=== PATIENT | female | born 2000 | race Caucasian/White ===

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

== ENCOUNTER 2018-06-19 14:21 | Inpatient (IN) | payer BC, OTHER ==
[~2018-06-19] VITALS: Ht 165.1 cm; Wt 89.2 kg
[~2018-06-19 14:21] MED LIST: BIRTH CONTROL; PROZ10CA7 PO; TRINTAB PO; VIST25CA PO; ZYPR5TAB2 PO
[2018-06-19] MEDS ORDERED: LATU20TA PO (14:30)
[2018-06-19 15:54] LABS: HEMATOCRIT 46.4 % (36.0-47.0); HEMOGLOBIN 15.7 g/dl (12.0-15.5); MEAN CORPUSCULAR HEMOGLOBIN 29.7 pg (27.0-33.0); MEAN CORPUSCULAR HGB CONC 33.8 g/dl (32.0-36.5); MEAN CORPUSCULAR VOLUME 87.9 fl (80.0-96.0); PLATELET COUNT, AUTOMATED 369 10^3/uL (150-450); RED BLOOD COUNT 5.28 10^6/uL (4.00-5.40); WHITE BLOOD COUNT 9.1 10^3/uL (4.0-10.0)
[2018-06-19 16:04] LABS: HCG, SERUM QUALITATIVE NEGATIVE (NEGATIVE)
[2018-06-19 16:16] LABS: ACETAMINOPHEN LEVEL < 2.0 UG/ML (10.0-30.0); ALBUMIN 4.2 GM/DL (3.2-5.2); ALT/SGPT 28 U/L (12-78); BILIRUBIN,DIRECT 0.2 MG/DL (0.0-0.2); BILIRUBIN,TOTAL 0.6 MG/DL (0.2-1.0); BLOOD UREA NITROGEN 11 MG/DL (7-18); CARBON DIOXIDE LEVEL 26 MEQ/L (21-32); CHLORIDE LEVEL 105 MEQ/L (98-107); CREATININE FOR GFR 0.96 MG/DL (0.55-1.30); ETHYL ALCOHOL (ETHANOL) < 0.003 % (0.000-0.010); GLUCOSE, FASTING 101 MG/DL (70-100); POTASSIUM SERUM 3.8 MEQ/L (3.5-5.1); SALICYLATE LEVEL 2.9 MG/DL (5.0-30.0); SODIUM LEVEL 140 MEQ/L (136-145); TOTAL PROTEIN 8.3 GM/DL (6.4-8.2)
[2018-06-19 16:31] LABS: AMPHETAMINES LEVEL URINE NEGATIVE (NEGATIVE); BARBITURATES URINE NEGATIVE (NEGATIVE); BENZODIAZEPINES URINE NEGATIVE (NEGATIVE); CANNABINOIDS URINE NEGATIVE (NEGATIVE); COCAINE METABOLITE URINE NEGATIVE (NEGATIVE); METHADONE URINE NEGATIVE (NEGATIVE); OPIATES URINE NEGATIVE (NEGATIVE); PHENCYCLIDINE URINE NEGATIVE (NEGATIVE)
[2018-06-19] MEDS ORDERED: MAALOX 30 ML SUSP *UDC PO PRN (17:45)
[2018-06-19] MEDS ORDERED: MOM 30ML SUSPENSION UDC PO PRN (17:45)
[2018-06-19] MEDS ORDERED: ACETAMINOPHEN TAB 650MG DOSE (2X325MG) PO PRN (17:45)
[2018-06-19] MEDS ORDERED: OLANZapine 5 MG TAB PO PRN (17:45)
[2018-06-19 18:30] VITALS: BP 182/111
[2018-06-19] MEDS ORDERED: LURASIDONE 20 MG TAB (LATUDA) PO SCH (21:00)
[2018-06-20] MEDS: MIRTAZAPINE 15 MG TAB PO PRN ×2 (03:35→23:42)
[2018-06-20 06:13] VITALS: BP 132/84
[2018-06-20] MEDS: INFLUENZA QUADRIVALENT PF VACCINE 0.5ML SYRINGE (90686) IM ONE ×2 (08:55→10:15)
[2018-06-20] MEDS: NICOTINE 21MG/24HR 1 EA TRANSDERMAL TD SCH (09:00)
--- NOTE | 2018-06-20 11:07 | HPEPDOC ---
[facility] Medical History & Physical Date of Admission Jun 19, 2018 History and Physical PCP: Dr Sargent ATTENDING: Dr. Irene Walton HPI: 17yoF admitted to [facility] for unspecified psychotic disorder, being medically examined today. No acute medical complaints today. Denies any fevers, chills, weakness, fatigue, SOMERS, CP, SOB, cough, palpitations, abdominal pain, N/V/D or changes in bowel or bladder habits. PMHx: anxiety depression Bipolar disorder PSHX: denies SOCHX: Resides in: [place], lives with Marital Status: single Kids: none Employment: [employer] Tobacco use: 1ppd ETOH: states "when I drink I drink". Illicit Drugs: marijuana 6 mo ago IV Drug Use: Denies Tattoos done unprofessionally: Denies FAMHX: Mother: Alive, seizure, thyroid disorder Father: Alive, bipolar disorder Siblings: Alive, well Children: none Unexpected deaths due to medical reasons: None. ROS: As noted in HPI, otherwise 11pt ROS of systems reviewed and remarkable only for LMP 06/14/18 PE: GEN: 17yoF appears stated age. Well-nourished, well developed. No acute distress. Alert and oriented x 3. Teary throughout exam, avoids eye contact. HEENT: Normocephalic, atraumatic. Pupils are equal, round, and reactive to light. Extraocular movements are intact. No nystagmus appreciated. Sclera are nonicteric. Conjunctiva without injection. Nose midline. Nasal turbinates without bogginess. EACs both patent BL. TMs both visualized and bhatia with good cone of light, no bulging or erythema. No facial asymmetry. Moist mucous membranes. Dentition fair. Pharynx pink and moist, no cobblestoning. Neck supple, trachea midline. No lymphadenopathy or thyromegaly appreciated. CHEST: Regular rate and rhythm, +S1, +S2 LUNGS: Clear to auscultation bilaterally. No wheezes, rales, or rhonchi. Breathing appears symmetric and easy. Patient is speaking in full sentences. No accessory muscle use. ABD: Round, soft, non-tender, non-distended. +Bowel sounds throughout. No rebound or guarding. No costovertebral angle tenderness. EXT: Pulses 2+ bilaterally dorsalis pedis and radial. No lower extremity edema appreciated. SKIN: [place], dry, warm. Capillary refill <2sec. No rashes. NEURO: Alert and oriented x 3. Cranial nerves III-XII are intact. No focal deficits appreciated. EKG: SINUS RHYTHM NSTTW ABNORMALITY NO PRIOR FOR COMPARISON Electronically Signed On 04-30-2017 19:00:03 EST by Gretchen Demarco A&P: 17yoF admitted to [facility] for unspecified psychotic disorder, 1. Psych. Plan per Psychiatry. EKG on file. 2. Nicotine dependence. Patch available. 3. Obesity. BMI 32.6 Complicates care. TSH WNL. BS 101 on admission. 4. Follow up with PCP on discharge. 5. Staff member Jaquelin RN student present throughout exam. Vital Signs Vital Signs Date Time Temp Pulse Resp B/P (MAP) Pulse Ox O2 Delivery O2 Flow Rate FiO2 06/20/18 06:13 98.3 66 18 132/84 (100) 06/19/18 18:30 95 06/19/18 18:21 Room Air Laboratory Data Labs 24H Laboratory Tests 2 06/19/18 14:58: Nucleated Red Blood Cells % (auto) 0.0, Anion Gap 9, Calcium Level 9.0, Aspartate Amino Transf (AST/SGOT) 18, Alanine Aminotransferase (ALT/SGPT) 28, Alkaline Phosphatase 113, Total Bilirubin 0.6, Direct Bilirubin 0.2, Total Protein 8.3H, Albumin 4.2, Albumin/Globulin Ratio 1.02, Thyroid Stimulating Hormone (TSH) 1.070, Human Chorionic Gonadotropin, Qual NEGATIVE, Salicylates Level 2.9L, Urine Amphetamines Screen NEGATIVE, Urine Benzodiazepines Screen NEGATIVE, Urine Opiates Screen NEGATIVE, Urine Methadone Screen NEGATIVE, Acetaminophen Level < 2.0L, Urine Barbiturates Screen NEGATIVE, Urine Phencyclidine Screen NEGATIVE, Urine Cocaine Metabolite Screen NEGATIVE, Urine Cannabinoids Screen NEGATIVE, Ethyl Alcohol Level < 0.003 CBC/BMP Laboratory Tests 06/19/18 14:58 Red Blood Count 5.28, Mean Corpuscular Volume 87.9, Mean Corpuscular Hemoglobin 29.7, Mean Corpuscular Hemoglobin Concent 33.8, Red Cell Distribution Width 11.8 Home Medications Scheduled Lurasidone Hydrochloride (Latuda) 20 Mg Tab, 20 MG PO QHS Allergies Coded Allergies: No Known Allergies (Unverified , 04/29/17) Louise Braun 6, 2019 11:07
[2018-06-20] MEDS ORDERED: NICOTINE 21MG/24HR 1 EA TRANSDERMAL TD ONE (13:45)
[2018-06-20] MEDS ORDERED: OLANZapine ORAL DISINTEGRATING TAB 5MG PO STA (14:09)
[2018-06-20] MEDS: PALIPERIDONE 3 MG ER TAB (INVEGA) PO SCH (15:19)
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
[2018-06-20 18:28] VITALS: BP 112/66
[2018-06-20] MEDS: LURASIDONE 20 MG TAB (LATUDA) PO SCH (21:33)
[2018-06-21 06:41] VITALS: BP 117/57
[2018-06-21] MEDS: NICOTINE 21MG/24HR 1 EA TRANSDERMAL TD SCH (08:39)
[2018-06-21] MEDS: PALIPERIDONE 3 MG ER TAB (INVEGA) PO SCH (08:39)
[2018-06-21] MEDS ORDERED: PROPRANOLOL 10 MG TAB PO PRN (14:15)
--- NOTE | 2018-06-21 16:57 | MHIPNPDOC ---
[facility] Progress Note Progress Note DATE OF SERVICE: 06/21/18 HISTORY: CHIEF COMPLAINT: Parents report bizarre behavior, patient hallucinating, paranoid, manic, unwilling to take her medications HISTORY OF PRESENT ILLNESS: Patient is a 17-year-old female, who, according to ED report:"pt's mother Barbie, reports past 3 months pt has been decompensating, erratic,sleeping, 3 days good, 3 days no sleep, "manic phase" risky behavior, increased sexual behavior, "paranoid about camera in the car, job, house, " was drug tested at her job, because of her bizarre behaviors, and paranoid thoughts, " pressured speech, disorganized thoughts, poor concentration, hearing distracting noises, seems to have internal stimuli, and has increased eating, admits to +AH, mumbling, seeing things, went drinking on Monday night, got home to grandmother's home, "seeing wings." Pt was put on Latuda 20 mg, 8 days ago, pt reports it is making her feel funny, by her dr. Sargent, Dr. Alcantar was in the office today, pt wanted to change the medication, pt states does not like taking medications, and wanted her brought to ED for an evaluation, not his expertise, per Step carol Shore. Pt presents "holding it together, denies any issues, not sure why she was drug tested, not suicidal, does not wish to kill anyone, wants to go home, "I want to get help, don't want to be here, I will do out patient, and take my medications." Pt reports she can see her therapist kalia mitchell, "any time." Per mother Barbie, "pt has not seen or spoke to Kalia in an year, stopped taking medications 2 months after dc 05/05/17, is having terrible mood swings, t angential mind thoughts, hasn't smiled in months, losing friends because of her paranoid thoughts." Babrie has safety concerns for her daughter's well-being, and risky behaviors, per mother. Pt minimizing and guarded in her presentation, does not know why her parents, Barbie and step dad Silviano, have concerns. Pt has a long history of anxiety, and bizarre behavior, per pt" VITAL SIGNS: See below. NEW TEST RESULTS: See below CURRENT MEDICATIONS: See below. MENTAL STATUS EXAMINATION: General Appearance: well groomed, appears stated age, personal, overweight Build: overweight Demeanor: pleasant, cooperative, talkative Eye Contact: good Activity: calm Behavior: She is much better today, she is cooperative and more flexible at this time, she has agreed to stay longer so that tw can adjust her medications Speech: clear, spontaneous, normal volume, reg/rate,rhythm,volume Mood: a little anxious Mood "I'm anxious because I'm supposed to go to groups but I can't be near a lot of people that I don't know" Affect: full, appropriate, congruent Thought Process: linear, not insightful Thought Content (Delusions): none reported today Thought Content (Other): anxious thoughts about going to groups Thought Content (Aggressive): none reported Perception (Hallucinations): none reported Perception (Other): none reported Cognition (Impairment of): none reported Cognition(Intelligence Est.): average Oriented: Awake, Alert, Oriented times three Insight: poor Judgment: poor Psychosis: Denies Diagnoses Generalized Anxiety Disorder Unspecified psychotic disorder, r/o bipolar disorder versus schizoaffective disorder. ASSESSMENT: Patient's attitude is improving. She is still not insightful but is calmer and is more opened to try new medications and stay longer (at least until tomorrow-we will see if tomorrow she agrees to stay over the weekend). She started taking Invega yesterday afternoon around 3:30 pm and she took it this morning too. She took Latuda last night, 40 mgs. I've started Zoloft today, a very small dose (12.5 mgs) just to help her with her social anxiety disorder. I don't want to give her a higher dose because yesterday she seemed to be manic. TW ordered Inderal 10 mgs PO TID PRN for anxiety/agitation because she describes that before she becomes very angry, her hands become shaky and sweaty. MANAGEMENT PLAN: As above Invega 3 mgs PO BID Latuda 40 mgs PO QHS Zoloft 12.5 mgs PO daily Inderal 10 mgs PO TIDP for anxiety/agitation TIME SPENT: 25 minutes. Vital Signs Vital Signs Date Time Temp Pulse Resp B/P (MAP) Pulse Ox O2 Delivery O2 Flow Rate FiO2 06/21/18 06:41 96.5 75 12 117/57 (77) 06/19/18 18:30 95 06/19/18 18:21 Room Air Current Medications Current Medications Acetaminophen (Tylenol Tab) 650 mg Q6HP PRN PO HEADACHE or DISCOMFORT; Start 06/19/18 at 17:45 Al Hydrox/Mg Hydrox/Simethicone (Mylanta) 30 ml Q4HP PRN PO HEARTBURN/INDIGESTION; Start 06/19/18 at 17:45 Home Med (Med Rec Complete!) ASDIRECTED XX ; Start 06/19/18 at 18:45; Stop 06/19/18 at 18:45; Status DC Lurasidone HCl (Latuda) 20 mg QHS PO Last administered on 06/19/18at 22:11; Start 06/19/18 at 21:00; Stop 06/20/18 at 14:09; Status DC Lurasidone HCl (Latuda) 40 mg QHS PO Last administered on 06/20/18at 21:33; Start 06/20/18 at 21:00 Magnesium Hydroxide (Milk Of Magnesia) 30 ml DAILYPRN PRN PO CONSTIPATION; Start 06/19/18 at 17:45 Mirtazapine (Remeron) 30 mg QHSP PRN PO INSOMNIA Last administered on 06/20/18at 23:42; Start 06/19/18 at 17:45 Nicotine (Nicoderm Cq 21mg) 1 patch DAILY TD Last administered on 06/21/18at 08:39; Start 06/20/18 at 09:00 Olanzapine (ZyPREXA ZYDIS) 10 mg STAT STAT PO ; Start 06/20/18 at 14:09; Stop 06/20/18 at 14:10; Status DC Olanzapine (ZyPREXA) 5 mg Q6HP PRN PO ANXIETY/AGITATION; Start 06/19/18 at 17:45 Paliperidone (Invega) 3 mg QAM PO Last administered on 06/21/18at 08:39; Start 06/20/18 at 09:00 Propranolol HCl (Inderal) 10 mg TID PRN PO ANXIETY/AGITATION; Start 06/21/18 at 14:15 Sertraline HCl (Zoloft) 12.5 mg QAM PO ; Start 06/22/18 at 09:00 Allergies Coded Allergies: No Known Allergies (Unverified , 04/29/17) TONE BRYANT MD Jun 21, 2018 16:44
[2018-06-21 18:00] VITALS: BP 138/75
[2018-06-21] MEDS: LURASIDONE 20 MG TAB (LATUDA) PO SCH (20:13)
[2018-06-22 06:00] VITALS: BP 127/58
[2018-06-22 07:38] LABS: CHOLESTEROL RISK RATIO 5.878 (<5)
[2018-06-22] MEDS: PALIPERIDONE 3 MG ER TAB (INVEGA) PO SCH (08:10)
[2018-06-22] MEDS: SERTRALINE HCL 25 MG TABLET PO SCH (08:10)
[2018-06-22] MEDS: NICOTINE 21MG/24HR 1 EA TRANSDERMAL TD SCH (08:10)
[2018-06-22] MEDS ORDERED: PALIPERIDONE PALMITATE 234 MG/1.5 ML INJ (INVEGA SUSTENNA)(J2426) IM SCH (09:00)
[2018-06-22] MEDS ORDERED: diphenhydrAMINE 25 MG CAP PO PRN (11:45)
[2018-06-22 18:11] VITALS: BP 127/71
[2018-06-22] MEDS: LURASIDONE 20 MG TAB (LATUDA) PO SCH (20:00)
--- NOTE | 2018-06-22 21:59 | MHIPNPDOC ---
[facility] Progress Note Progress Note DATE OF SERVICE: 06/22/18 HISTORY: CHIEF COMPLAINT: Parents report bizarre behavior, patient hallucinating, paranoid, manic, unwilling to take her medications HISTORY OF PRESENT ILLNESS: Patient is a 17-year-old female, who, according to ED report:"pt's mother Barbie, reports past 3 months pt has been decompensating, erratic,sleeping, 3 days good, 3 days no sleep, "manic phase" risky behavior, increased sexual behavior, "paranoid about camera in the car, job, house, " was drug tested at her job, because of her bizarre behaviors, and paranoid thoughts, " pressured speech, disorganized thoughts, poor concentration, hearing distracting noises, seems to have internal stimuli, and has increased eating, admits to +AH, mumbling, seeing things, went drinking on Monday night, got home to grandmother's home, "seeing wings." Pt was put on Latuda 20 mg, 8 days ago, pt reports it is making her feel funny, by her dr. Sargent, Dr. Alcantar was in the office today, pt wanted to change the medication, pt states does not like taking medications, and wanted her brought to ED for an evaluation, not his expertise, per Step carol Shore. Pt presents "holding it together, denies any issues, not sure why she was drug tested, not suicidal, does not wish to kill anyone, wants to go home, "I want to get help, don't want to be here, I will do out patient, and take my medications." Pt reports she can see her therapist kalia mitchell, "any time." Per mother Barbie, "pt has not seen or spoke to Kalia in an year, stopped taking medications 2 months after dc 05/05/17, is having terrible mood swings, t angential mind thoughts, hasn't smiled in months, losing friends because of her paranoid thoughts." Barbie has safety concerns for her daughter's well-being, and risky behaviors, per mother. Pt minimizing and guarded in her presentation, does not know why her parents, Barbie and step dad Silviano, have concerns. Pt has a long history of anxiety, and bizarre behavior, per pt" VITAL SIGNS: See below. NEW TEST RESULTS: See below CURRENT MEDICATIONS: See below. MENTAL STATUS EXAMINATION: General Appearance: well groomed, appears stated age, personal, overweight Build: overweight Demeanor: pleasant, cooperative, talkative Eye Contact: good Activity: anxious Behavior: She is much better today, she is cooperative and more flexible at this time, she has agreed to stay longer so that tw can adjust her medications Speech: clear, spontaneous, normal volume, reg/rate,rhythm,volume Mood: a little anxious Mood "I'm fine, I just want to go home" Affect: full, appropriate, congruent Thought Process: linear, not insightful Thought Content (Delusions): none reported today Thought Content (Other): anxious thoughts about going to groups Thought Content (Aggressive): none reported Perception (Hallucinations): none reported Perception (Other): none reported Cognition (Impairment of): none reported Cognition(Intelligence Est.): average Oriented: Awake, Alert, Oriented times three Insight: poor Judgment: poor Psychosis: Denies Diagnoses Generalized Anxiety Disorder Unspecified psychotic disorder, r/o bipolar disorder versus schizoaffective disorder. ASSESSMENT: Patient agreed to receive G[place] of Invega, Invega 234 mgs IM today and booster next Monday. Patient was calm and cooperative, although she wanted to be discharged, she accepted staying at the hospital and receive her injection. Will discontinue Invega (oral) and will decrease Latuda to 20 mgs PO QHS, will continue with Zoloft 12.5 mgs PO QAM and Inderal 10 mgs PO TIDP for anxiety/agitation. Patient has been feeling calmer since she was started on Invega. She will be taking Benadryl to prevent EPS. MANAGEMENT PLAN: As above Latuda 40 mgs PO QHS Zoloft 12.5 mgs PO daily Inderal 10 mgs PO TIDP for anxiety/agitation TIME SPENT: 25 minutes. Vital Signs Vital Signs Date Time Temp Pulse Resp B/P (MAP) Pulse Ox O2 Delivery O2 Flow Rate FiO2 06/22/18 18:11 98.0 96 18 127/71 (89) 06/19/18 18:30 95 06/19/18 18:21 Room Air Laboratory Data 24H Labs Laboratory Tests 2 06/22/18 06:48: Triglycerides Level 211H, LDL Cholesterol 119H, Total Cholesterol 194, Non-HDL Cholesterol (LDL + VLDL) 161, Total HDL Cholesterol 33L, Cholesterol/HDL Ratio 5.878H Current Medications Current Medications Acetaminophen (Tylenol Tab) 650 mg Q6HP PRN PO HEADACHE or DISCOMFORT; Start 06/19/18 at 17:45 Al Hydrox/Mg Hydrox/Simethicone (Mylanta) 30 ml Q4HP PRN PO HEARTBURN/INDIGESTION; Start 06/19/18 at 17:45 Diphenhydramine HCl (Benadryl) 25 mg Q8HP PRN PO EPS; Start 06/22/18 at 11:45 Home Med (Med Rec Complete!) ASDIRECTED XX ; Start 06/19/18 at 18:45; Stop 06/19/18 at 18:45; Status DC Lurasidone HCl (Latuda) 20 mg QHS PO Last administered on 06/19/18at 22:11; Start 06/19/18 at 21:00; Stop 06/20/18 at 14:09; Status DC Lurasidone HCl (Latuda) 40 mg QHS PO Last administered on 06/22/18at 20:00; Start 06/20/18 at 21:00 Magnesium Hydroxide (Milk Of Magnesia) 30 ml DAILYPRN PRN PO CONSTIPATION; Start 06/19/18 at 17:45 Mirtazapine (Remeron) 30 mg QHSP PRN PO INSOMNIA Last administered on 06/20/18at 23:42; Start 06/19/18 at 17:45 Nicotine (Nicoderm Cq 21mg) 1 patch DAILY TD Last administered on 06/22/18at 08:10; Start 06/20/18 at 09:00 Olanzapine (ZyPREXA ZYDIS) 10 mg STAT STAT PO ; Start 06/20/18 at 14:09; Stop 06/20/18 at 14:10; Status DC Olanzapine (ZyPREXA) 5 mg Q6HP PRN PO ANXIETY/AGITATION; Start 06/19/18 at 17:45 Paliperidone (Invega) 3 mg QAM PO Last administered on 06/22/18at 08:10; Start 06/20/18 at 09:00 Paliperidone Palmitate (Invega Sustenna) 234 mg Q30D IM Last administered on 06/22/18at 12:24; Start 06/22/18 at 09:00 Propranolol HCl (Inderal) 10 mg TID PRN PO ANXIETY/AGITATION; Start 06/21/18 at 14:15 Sertraline HCl (Zoloft) 12.5 mg QAM PO Last administered on 06/22/18at 08:10; Start 06/22/18 at 09:00 Allergies Coded Allergies: No Known Allergies (Unverified , 04/29/17) TONE BRYANT MD Jun 22, 2018 21:59
[2018-06-23 06:15] VITALS: BP 134/81
[2018-06-23] MEDS: NICOTINE 21MG/24HR 1 EA TRANSDERMAL TD SCH (08:36)
[2018-06-23] MEDS: SERTRALINE HCL 25 MG TABLET PO SCH (08:36)
[2018-06-23 18:42] VITALS: BP 108/75
[2018-06-23] MEDS: LURASIDONE 20 MG TAB (LATUDA) PO SCH (20:15)
[2018-06-24 06:10] VITALS: BP 129/70
[2018-06-24] MEDS: SERTRALINE HCL 25 MG TABLET PO SCH (08:39)
[2018-06-24] MEDS: NICOTINE 21MG/24HR 1 EA TRANSDERMAL TD SCH (08:40)
[2018-06-24 18:00] VITALS: BP 122/80
[2018-06-24] MEDS: LURASIDONE 20 MG TAB (LATUDA) PO SCH (20:51)
[2018-06-25 06:21] VITALS: BP 131/67
[2018-06-25] MEDS: NICOTINE 21MG/24HR 1 EA TRANSDERMAL TD SCH (09:00)
[2018-06-25] MEDS: SERTRALINE HCL 25 MG TABLET PO SCH (09:25)
[2018-06-25] MEDS ORDERED: DIPH25CA PO (11:51)
[2018-06-25] MEDS ORDERED: LATU20TA PO (11:51)
[2018-06-25] MEDS ORDERED: PROP10TAB PO (11:51)
[2018-06-25] MEDS ORDERED: NICO21PAT TD (11:51)
[2018-06-25] MEDS ORDERED: MIRT15TA3 PO (11:51)
[2018-06-25] MEDS ORDERED: INVE234I IM (11:51)
[2018-06-25] MEDS ORDERED: SERT25TA PO (11:51)
[2018-06-25] MEDS ORDERED: PALIPERIDONE PALMITATE 156 MG/1ML INJ(INVEGA SUSTENNA)(J2426) IM ONE (12:00)
--- NOTE | 2018-06-25 15:39 | MHIPN ---
DATE: 06/23/2018 The patient today states that she is doing "a lot better." She really feels her current medications are helping her. She has no complaints. MENTAL STATUS EXAMINATION: She is alert and oriented times three. Eye contact is fair. Psychomotor activity is normal. She is verbally spontaneous. There is no formal thought disorder noted. Mood is "better." Affect is full range and appropriate. She is not psychotic, suicidal or homicidal. Concentration is fair. Memory intact. Insight and judgment fair. DIAGNOSES: 1. Generalized anxiety disorder. 2. Unspecified psychotic disorder. TREATMENT PLAN: We will continue to monitor the patient for continued elevation and stabilization of her mood and for continued resolution of any suicidal ideations. We will plan on monitoring and titrating her medications as indicated.
--- NOTE | 2018-07-01 16:29 | MHDSPDOC ---
[facility] Discharge Summary Discharge Summary DATE OF ADMISSION: Jun 19, 2018 at 17:33 DATE OF DISCHARGE: Jun 25, 2018 at 13:50 DISCHARGE DIAGNOSES: 1. Schizoaffective disorder, bipolar 2. SOPHIA 3. Panic disorder REASON FOR ADMISSION: CHIEF COMPLAINT: Parents report bizarre behavior, patient hallucinating, paranoid, manic, unwilling to take her medications HISTORY OF PRESENT ILLNESS: Patient is a 17-year-old female, who, according to ED report:"pt's mother Barbie, reports past 3 months pt has been decompensating, erratic,sleeping, 3 days good, 3 days no sleep, "manic phase" risky behavior, increased sexual behavior, "paranoid about camera in the car, job, house, " was drug tested at her job, because of her bizarre behaviors, and paranoid thoughts," pressured speech, disorganized thoughts, poor concentration, hearing distracting noises, seems to have internal stimuli, and has increased eating, admits to +, mumbling, seeing things, went drinking on Monday night, got home to grandmother's home, "seeing wings." Pt was put on Latuda 20 mg, 8 days ago, pt reports it is making her feel funny, by her dr. Simmons, Dr. Alcantar was in the office today, pt wanted to change the medication, pt states does not like taking medications, and wanted her brought to ED for an evaluation, not his expertise, per Step carol Shore. Pt presents "holding it together, denies any issues, not sure why she was drug tested, not suicidal, does not wish to kill anyone, wants to go home, "I want to get help, don't want to be here, I will do out patient, and take my medications." Pt reports she can see her therapist kalia mitchell, "any time." Per mother Barbie, "pt has not seen or spoke to Kalia in an year, stopped taking medications 2 months after dc 05/05/17, is having terrible mood swings, tangential mind thoughts, hasn't smiled in months, losing friends because of her paranoid thoughts." Barbie has safety concerns for her daughter's well-being, and risky behaviors, per mother. Pt minimizing and guarded in her presentation, does not know why her parents, Barbie and step dad Silviano, have concerns. Pt has a long history of anxiety, and bizarre behavior, per pt" CONSULTANTS INVOLVED: None TREATMENT AND PROGRESS ON THE UNIT : Patient was admitted after parents reported bizarre/manic/paranoid behavior for several days. She had experienced visual hallucinations and she said it had been the only time, when she had seen "wings". she was dnying all the symptoms her parents had descirbed when she came into our Unit and she refused to take any medications but lateron, she accepted to take Invega 3 mgs. During the next 24 hours the patient was more cooperative and although she didn't want to stay at the hospital, she accepted staying when I told her it was with the purpose of adjusting her medications. she had been taking Latuda, prescribed by her outpatient provider, but apparently and according to what her parents said, she was not very compliant. Next day she insisted on being discharged but I explained that we needed to observe her response to medications and offered her the possibility of starting her on Invega sustenna 234 mgs IM and she accepted. TW ecplained that she would need to stay until Monday because she would need her 2nd loading dose of 156 mgs and she accepted too, although she said that it was Monday and she wanted to be at her GM's home. During her stay she didn't exhibit any angry outbursts, she was cooperative but she refused to go to most groups because she said she had Social Anxiety and it made her nervous to be in a room with other people, especially when it came to sharing personal issues. She had a good response to medications, she didn't report medication side effects, she said she would comply with medications and therapy. She was discharged with instructions to receive her outpatient monthly [place] for Invega Sustenna, continue taking Latuda at a low dose (20 mgs,. more for mood stabilization), Sertraline 25 mgs Po daily for depression, Propranolol 10 mgs PO TID PRN for severe anxiety/panic attacks, Mirtazapine 30 mgs PO QHS PRN for insomnia, Benadryl 15 mgs PO Q8P for EPS HOSPITAL COURSE: As above DISCHARGE ASSESSMENT: Patient was not homicidal, not suicidal, not psychotic, she was goal orientated, wanted to go to College, wanted to go back to work MENTAL STATUS EXAMINATION ON DISCHARGE: General Appearance: well groomed, appears stated age, personal clothes, overweight Build: overweight Demeanor: pleasant, cooperative, talkative Eye Contact: good Activity: calm Behavior: pleasant, cooperative, calm, relaxed Speech: clear, spontaneous, normal volume, reg/rate,rhythm,volume Mood: happy Mood "I'm happy to go home" Affect: full, appropriate, congruent Thought Process: linear, more insightful Thought Content (Delusions): none reported today Thought Content (Other): none reported Thought Content (Aggressive): none reported Perception (Hallucinations): none reported Perception (Other): none reported Cognition (Impairment of): none reported Cognition(Intelligence Est.): average Oriented: Awake, Alert, Oriented times three Insight: improved Judgment: improved Psychosis: Denies MEDICATIONS ON DISCHARGE: Scheduled Lurasidone Hydrochloride (Latuda) 20 Mg Tab, 20 MG PO QHS for MOOD, #7 Nicotine (Nicotine Transdermal Syst) 21 Mg/24 Hr Dis, 1 PATCH TD DAILY for NICOTINE WITHDRAWALS, #7 Paliperidone Palmitate (Invega Sustenna) 234 Mg/1.5 Ml Inj, 234 MG IM Q30D for PSYCHOSIS, #1 Sertraline Hcl (Sertraline HCl) 25 Mg Tab, 12.5 MG PO QAM for ANXIETY, #7 Scheduled PRN Diphenhydramine HCl (Diphenhydramine HCl) 25 Mg Cap, 25 MG PO Q8HP PRN for EPS, #21 Mirtazapine (Mirtazapine) 15 Mg Tab, 30 MG PO QHSP PRN for INSOMNIA, #7 Propranolol HCl (Propranolol HCl) 10 Mg Tab, 10 MG PO TID PRN for ANXIETY/AGITATION, #21 PLAN/FOLLOWUP ARRANGEMENTS: Follow Up Care Education Label * Mental Health Appt 1 * Mental Health [facility] * Established With This Provider Yes * Therapist DANI * Date Jun 26, 2018 * Time 10:45 * Address of Clinic or Practice [address] [place] [address] * Follow Up Care Education Label * Medical * Medical Follow Up [facility] * Established With This Provider Yes * Therapist DR. SIMMONS * Date Jul 10, 2018 * Time 14:20 * Address of Clinic or Practice [address] [facility] [address], [place] [address] * Follow Up Care Education Label * Smoking Cessation * Mental Health [facility] * Smoking Cessation [facility] Smoking Cessation * Additional information see attached form The amount of time spent in the coordination of care for this patient was approximately 30 minutes. Vital Signs/I&Os Vital Signs Date Time Temp Pulse Resp B/P (MAP) Pulse Ox O2 Delivery O2 Flow Rate FiO2 06/25/18 06:21 98.3 80 18 131/67 (88) Medications Scheduled Lurasidone Hydrochloride (Latuda) 20 Mg Tab, 20 MG PO QHS for MOOD, #7 Nicotine (Nicotine Transdermal Syst) 21 Mg/24 Hr Dis, 1 PATCH TD DAILY for NICOTINE WITHDRAWALS, #7 Paliperidone Palmitate (Invega Sustenna) 234 Mg/1.5 Ml Inj, 234 MG IM Q30D for PSYCHOSIS, #1 Sertraline Hcl (Sertraline HCl) 25 Mg Tab, 12.5 MG PO QAM for ANXIETY, #7 Scheduled PRN Diphenhydramine HCl (Diphenhydramine HCl) 25 Mg Cap, 25 MG PO Q8HP PRN for EPS, #21 Mirtazapine (Mirtazapine) 15 Mg Tab, 30 MG PO QHSP PRN for INSOMNIA, #7 Propranolol HCl (Propranolol HCl) 10 Mg Tab, 10 MG PO TID PRN for ANXIETY/AGITATION, #21 Allergies Coded Allergies: No Known Allergies (Unverified , 04/29/17) TONE BRYANT MD Jul 01, 2018 16:26
== END 2018-06-25 13:50 | disposition home or self-care (01) | DRG 885 ==
LOC: M ED 14:21 → M ED INP 17:33 → M PSY 18:29
PROVIDERS: ADMIT Psychiatry & Neurology Psychiatry; ATTEND Psychiatry & Neurology Psychiatry
DX: F25.0 Schizoaffective disorder, bipolar type (principal); F41.0 Panic disorder [episodic paroxysmal anxiety]; Z79.899 Other long term (current) drug therapy; F17.200 Nicotine dependence, unspecified, uncomplicated; E66.9 Obesity, unspecified; Z68.32 Body mass index [BMI] 32.0-32.9, adult

== ENCOUNTER 2018-10-21 20:07 | Inpatient (IN) | payer OTHER ==
[~2018-10-21] VITALS: Ht 165.1 cm; Wt 88.9 kg
[~2018-10-21 20:07] MED LIST changes: +DIPH25CA PO; +INVE234I IM; +LATU20TA PO; +MIRT15TA3 PO; +NICO21PAT TD; +PROP10TA55 PO; +SERT25TA85 PO
[2018-10-21] MEDS ORDERED: ARIP1TAB6 PO (20:23)
[2018-10-21 21:07] LABS: HEMATOCRIT 40.1 % (36.0-47.0); HEMOGLOBIN 13.5 g/dl (12.0-15.5); MEAN CORPUSCULAR HEMOGLOBIN 30.4 pg (27.0-33.0); MEAN CORPUSCULAR HGB CONC 33.7 g/dl (32.0-36.5); MEAN CORPUSCULAR VOLUME 90.3 fl (80.0-96.0); PLATELET COUNT, AUTOMATED 275 10^3/uL (150-450); RED BLOOD COUNT 4.44 10^6/uL (4.00-5.40); WHITE BLOOD COUNT 10.8 10^3/uL (4.0-10.0)
[2018-10-21 21:36] LABS: AMPHETAMINES LEVEL URINE NEGATIVE (NEGATIVE); BARBITURATES URINE NEGATIVE (NEGATIVE); BENZODIAZEPINES URINE NEGATIVE (NEGATIVE); CANNABINOIDS URINE NEGATIVE (NEGATIVE); COCAINE METABOLITE URINE NEGATIVE (NEGATIVE); METHADONE URINE NEGATIVE (NEGATIVE); OPIATES URINE NEGATIVE (NEGATIVE); PHENCYCLIDINE URINE NEGATIVE (NEGATIVE)
[2018-10-21 21:45] LABS: ACETAMINOPHEN LEVEL < 2.0 UG/ML (10.0-30.0); ALBUMIN 3.7 GM/DL (3.2-5.2); ALT/SGPT 18 U/L (12-78); BILIRUBIN,DIRECT 0.1 MG/DL (0.0-0.2); BILIRUBIN,TOTAL 0.5 MG/DL (0.2-1.0); BLOOD UREA NITROGEN 11 MG/DL (7-18); CALCIUM LEVEL 9.1 MG/DL (8.5-10.1); CARBON DIOXIDE LEVEL 29 MEQ/L (21-32); CHLORIDE LEVEL 105 MEQ/L (98-107); CREATININE FOR GFR 0.92 MG/DL (0.55-1.30); ETHYL ALCOHOL (ETHANOL) < 0.003 % (0.000-0.010); GLUCOSE, FASTING 93 MG/DL (70-100); POTASSIUM SERUM 3.8 MEQ/L (3.5-5.1); SALICYLATE LEVEL < 1.7 MG/DL (5.0-30.0); SODIUM LEVEL 141 MEQ/L (136-145); TOTAL PROTEIN 7.1 GM/DL (6.4-8.2)
[2018-10-21 21:51] LABS: HCG, SERUM QUALITATIVE NEGATIVE (NEGATIVE)
[2018-10-21] MEDS ORDERED: LURASIDONE 20 MG TAB (LATUDA) PO ONE (22:45)
[2018-10-22] MEDS ORDERED: PROP10TA56 PO (09:06)
[2018-10-22] MEDS ORDERED: LATU20TA PO (09:06)
[2018-10-22] MEDS ORDERED: MOM 30ML SUSPENSION UDC PO PRN (13:00)
[2018-10-22] MEDS ORDERED: traZODone 50 MG TAB PO PRN (13:00)
[2018-10-22] MEDS ORDERED: ACETAMINOPHEN TAB 650MG DOSE (2X325MG) PO PRN (13:00)
[2018-10-22] MEDS ORDERED: MAALOX 30 ML SUSP *UDC PO PRN (13:00)
[2018-10-22 13:42] VITALS: BP 113/61
--- NOTE | 2018-10-22 15:32 | HPEPDOC ---
General Date of Admission Oct 22, 2018 at 13:15 Date of Service: Oct 22, 2018 Attending Physician: LANA VASQUEZ MD Chief Complaint The patient is a 18-year-old female admitted with a reason for visit of E. Source: Patient, RN/ History of Present Illness Patient is a 18-year-old, past medical history significant for bipolar disorder, depression, anxiety, presenting to the emergency room on account of suicidal thoughts for 2 weeks. Patient had also had a panic attack and informed her parents that she needed to come to the hospital. On assessment, she denies any physical symptoms of chest pain, shortness of breath, weakness, chills, fever, abdominal pain, nausea, diarrhea or constipation. Home Medications Scheduled Aripiprazole (Aripiprazole) 5 Mg Tablet, 5 MG PO QHS, (Reported) Lurasidone Hydrochloride (Latuda) 20 Mg Tablet, 20 MG PO QHS, (Reported) Scheduled PRN Propranolol HCl (Propranolol HCl) 10 Mg Tablet, 10 MG PO TID PRN for ANXIETY/AGITATION, (Reported) Allergies Coded Allergies: bee venom protein (honey bee) (Verified Allergy, Unknown, 10/21/18) Past Medical History Medical History Bipolar disorder Depression Anxiety Nicotine dependence Surgical History No surgeries Family History Denies family history Social History * Smoker: current smoker, less than 1 pack/day Alcohol: Denies Drugs: denies A-FIB/CHADSVASC A-FIB History Current/History of A-Fib/PAF?: No Current PO Anticoag Therapy: No Review of Systems Other systems A pertinent 10 point review of systems is completed, negative except as stated in the history of presenting illness Physical Examination Other physical findings GENERAL: NAD SKIN : Warm, dry intact HEENT: Atraumatic, normocephalic, PERRL, moist mucous membrane CARDIOVASCULAR: Regular rate and rhythm, S1S2, no JVD, no edema, distal pulses + and palpable RESP: CTAB, no accessory muscle use noted ABDOMEN: BS+ non distended non tender MS: no joint deformities NEURO: Alert and oriented x 3, CN2-12 grossly intact PSYCH: no anxiety or agitation, appropriate mood and affect. Vital Signs Vital Signs Date Time Temp Pulse Resp B/P (MAP) Pulse Ox O2 Delivery O2 Flow Rate FiO2 10/22/18 13:42 98.5 82 16 113/61 (78) 97 10/22/18 06:56 Room Air Laboratory Data Labs 24H Laboratory Tests 2 10/21/18 20:56: Nucleated Red Blood Cells % (auto) 0.0, Anion Gap 7L, Calcium Level 9.1, Aspartate Amino Transf (AST/SGOT) 12, Alanine Aminotransferase (ALT/SGPT) 18, Alkaline Phosphatase 72, Total Bilirubin 0.5, Direct Bilirubin 0.1, Total Protein 7.1, Albumin 3.7, Albumin/Globulin Ratio 1.09, Thyroid Stimulating Hormone (TSH) 1.630, Human Chorionic Gonadotropin, Qual NEGATIVE, Salicylates Level < 1.7L, Urine Amphetamines Screen NEGATIVE, Urine Benzodiazepines Screen NEGATIVE, Urine Opiates Screen NEGATIVE, Urine Methadone Screen NEGATIVE, Acetaminophen Level < 2.0L, Urine Barbiturates Screen NEGATIVE, Urine Phencyclidine Screen NEGATIVE, Urine Cocaine Metabolite Screen NEGATIVE, Urine Cannabinoids Screen NEGATIVE, Ethyl Alcohol Level < 0.003 CBC/BMP Laboratory Tests 10/21/18 20:56 Red Blood Count 4.44, Mean Corpuscular Volume 90.3, Mean Corpuscular Hemoglobin 30.4, Mean Corpuscular Hemoglobin Concent 33.7, Red Cell Distribution Width 11.9 Assessment/Plan Leukocytosis Suicidal ideation Bipolar disorder Nicotine dependence PLAN Patient's current major acute problems are psychiatric in nature. She has no underlying medical comorbidities requiring active evaluation and follow-up. Elevated white blood count could be reactive given current stressors Repeat CBC in the morning to monitor for normalization of values Plan / VTE VTE Prophylaxis Ordered?: No VTE Exclusion Mechanical Proph: Low Risk for VTE [facility] Oct 22, 2018 15:32
[2018-10-22 18:00] VITALS: BP 112/60
[2018-10-23 06:34] LABS: HEMATOCRIT 42.7 % (36.0-47.0); HEMOGLOBIN 14.3 g/dl (12.0-15.5); MEAN CORPUSCULAR HEMOGLOBIN 30.4 pg (27.0-33.0); MEAN CORPUSCULAR HGB CONC 33.5 g/dl (32.0-36.5); MEAN CORPUSCULAR VOLUME 90.7 fl (80.0-96.0); PLATELET COUNT, AUTOMATED 249 10^3/uL (150-450); RED BLOOD COUNT 4.71 10^6/uL (4.00-5.40); WHITE BLOOD COUNT 7.3 10^3/uL (4.0-10.0)
[2018-10-23 06:38] VITALS: BP 106/53
[2018-10-23 06:51] LABS: HEMOGLOBIN A1c 5.6 %
[2018-10-23 07:01] LABS: ALBUMIN 3.5 GM/DL (3.2-5.2); ALT/SGPT 18 U/L (12-78); BILIRUBIN,TOTAL 0.8 MG/DL (0.2-1.0); BLOOD UREA NITROGEN 15 MG/DL (7-18); CALCIUM LEVEL 8.5 MG/DL (8.5-10.1); CARBON DIOXIDE LEVEL 26 MEQ/L (21-32); CHLORIDE LEVEL 107 MEQ/L (98-107); CHOLESTEROL LEVEL 208 MG/DL (<200); CREATININE FOR GFR 0.89 MG/DL (0.55-1.30); GLUCOSE, FASTING 88 MG/DL (70-100); HDL CHOLESTEROL 40 MG/DL (>40); LDL CHOLESTEROL 134 MG/DL (<100); NON-HDL-C 168 MG/DL; POTASSIUM SERUM 4.4 MEQ/L (3.5-5.1); SODIUM LEVEL 140 MEQ/L (136-145); TOTAL PROTEIN 6.7 GM/DL (6.4-8.2); TRIGLYCERIDES LEVEL 170 MG/DL (<150)
--- NOTE | 2018-10-23 10:15 | MHHPEPDOC ---
[facility] History & Physical History and Physical DATE OF ADMISSION: Oct 22, 2018 at 13:15 New Patient Sudha Chamberlain Age 18 Female Date of : 2000 Date of Service: 10/23/2018 Chief Complaint "I want to go home." History of Present Illness The patient a 18-year-old woman with a history of bipolar disorder presents to the [facility] ER after endorsing suicidal thoughts of wanting to shoot herself with a gun. She had been endorsing suicidal thoughts for the last week and has subsequently become fairly impaired and unable to attend work. This has gotten worse despite any interest decision by her outpatient provider who recently changed her from Lexapro to Latuda. When the patient was met with, she described she wished to go home. She felt that the state was "unhelpful". She was fairly guarded and bizarre, unable to consistently tell a narrative as to the events that happened. She was evasive and there were concerns raised that she was not compliant with her medications. She had signed releases of information for her parents who have relayed that she had become increasingly more anxious and depressed as well as suicidal. The patient was noted to have stayed in her room the entire day without any intera ction in a fairly bizarre manner. Review Of Systems Depression: As above with multiple previous episodes. Anxiety: Has episodes of panic, unclear if consistent. Payal: Previous episodes of paranoia and euphoria associated with decreased need for sleep, impulsivity and hedonism lasting several days at a time with inpatient admissions. Psychotic: Previous episodes of paranoia and auditory hallucinations, denies them currently. Trauma: The patient denies any traumatic events associated with nightmares or intrusive thoughts. Borderline: Not screened at this time. Past Psychiatric History The patient has three previous admissions for paranoia and bipolar disorder. She's been tried on multiple neuroleptics and is currently on Abilify and Latuda as an augmentation regimen. She denies any history of suicide attempts. Allergies Please see below. Family Psychiatric History Some noted hx of mental health unable to elaborate Social History The patient is a step daughter of a local [employer] employee. She has three brothers and one sister and lives with her biological mother and stepfather. She has no history of arrests or legal troubles. 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 She does not endorse any significant history of abuse. Substance Abuse History The patient endorses that she drinks alcohol fairly infrequently and only three or four drinks at a time, roughly monthly. She denies any illicit drug use. She does smoke tobacco roughly five or more cigarettes a day. Medical History Patient has no significant past medical history. Mental Status Examination General: Fair hygiene Speech: Sparse Thought processes: Circumstantial MSK: Smooth and coordinated gait, no signs of tremors or involuntary orofacial movements Thought content: Guarded Abstract reasoning, and computation: Intact Description of associations: Intact Description of abnormal or psychotic thoughts: Denies any suicidal or homicidal ideation. Denies any auditory or visual hallucinations. Does not appear to be responding to internal stimuli. Judgment: Impaired Insight: Impaired Orientation: Alert and orientated 3 Cognition: Grossly normal Recent and remote memory: Intact Attention span and concentration: Intact Fund of knowledge: Adequate Mood: "okay" Affect: Flat with limited reactivity Diagnoses Bipolar 1, most recent episode, depressed: worsening. Tobacco use disorder, severe. Assessment and Plan The patient a 18-year-old woman whose stepfather is a psychiatric nurse, is brought in by her parents due to suicidal thoughts with a plan to shoot herself. She does have theoretical access to a gun and has previously been admitted. Her treatment has been complicated by previous episodes of payal and paranoia that are unclear in origin. She continues to want to leave, but she demonstrates fairly bizarre ideation and inconsistent stories that are concerning. Disposition 1. Depression. 2. Risk for suicide. 3. The patient will need longer than two midnights of treatment in order to guarantee her safety and to treat her fairly severe depressive episode with possible psychotic features. Problem List 1. Depression 2. Risk for suicide 3. Altered thoughts Initial Treatment Plan 1. Patient was admitted on a 9.39 legal status. 2. Complete history was obtained. 3. With patients permission, family will be contacted and database will be expanded. 4. Patients medication regimen will be reviewed and changed accordingly. 5. Patient will be provided with protected environment. 6. Patient will be treated with individual, group, and milieu therapies. 7. Patient will receive supportive psych-education. 8. Discharge planning will commence immediately. 9. Outpatient follow-up treatment will be strongly recommended. 10. Resume patient's home medications and monitor as her risks concerns of non- compliance when she had previously presented. Estimated Length Of Stay Four to five days. Time Spent 45 minutes. Vital Signs Vital Signs Date Time Temp Pulse Resp B/P (MAP) Pulse Ox O2 Delivery O2 Flow Rate FiO2 10/23/18 06:38 99.1 55 12 106/53 (70) 10/22/18 13:42 97 10/22/18 06:56 Room Air Laboratory Data 24H Labs Laboratory Tests 2 10/23/18 06:22: Nucleated Red Blood Cells % (auto) 0.0, Anion Gap 7L, Estimated Mean Plasma Glucose 114H, Hemoglobin A1c 5.6, Blood Urea Nitrogen 15, Creatinine 0.89, Sodium Level 140, Potassium Level 4.4, Chloride Level 107, Carbon Dioxide Level 26, Calcium Level 8.5, Aspartate Amino Transf (AST/SGOT) 13, Alanine Aminotransferase (ALT/SGPT) 18, Alkaline Phosphatase 73, Total Bilirubin 0.8#, Triglycerides Level 170H, LDL Cholesterol 134H, Total Protein 6.7, Albumin 3.5, Albumin/Globulin Ratio 1.09, Total Cholesterol 208H, Non-HDL Cholesterol (LDL + VLDL) 168, Total HDL Cholesterol 40, Cholesterol/HDL Ratio 5.200H CBC/BMP Laboratory Tests 10/23/18 06:22 Red Blood Count 4.71, Mean Corpuscular Volume 90.7, Mean Corpuscular Hemoglobin 30.4, Mean Corpuscular Hemoglobin Concent 33.5, Red Cell Distribution Width 11.9, Calcium Level 8.5, Aspartate Amino Transf (AST/SGOT) 13, Alanine Aminotransferase (ALT/SGPT) 18, Alkaline Phosphatase 73, Total Bilirubin 0.8 #, Triglycerides Level 170 H, LDL Cholesterol 134 H, Total Protein 6.7, Albumin 3.5 Medications Scheduled Aripiprazole (Aripiprazole) 5 Mg Tablet, 5 MG PO QHS, (Reported) Lurasidone Hydrochloride (Latuda) 20 Mg Tablet, 20 MG PO QHS, (Reported) Scheduled PRN Propranolol HCl (Propranolol HCl) 10 Mg Tablet, 10 MG PO TID PRN for ANXIETY/AGITATION, (Reported) Allergies Coded Allergies: bee venom protein (honey bee) (Verified Allergy, Unknown, 10/21/18) NASH WEBB DO Oct 23, 2018 10:15
[2018-10-23 18:00] VITALS: BP 118/79
[2018-10-23] MEDS ORDERED: LURASIDONE 20 MG TAB (LATUDA) PO SCH (21:00)
[2018-10-24 06:44] VITALS: BP 105/50
[2018-10-24 07:14] LABS: HEMOGLOBIN A1c 5.6 %
[2018-10-24 07:25] LABS: CHOLESTEROL RISK RATIO 5.536 (<5)
[2018-10-24] MEDS ORDERED: LITHIUM CARBONATE 300 MG CAP PO SCH (09:00)
--- NOTE | 2018-10-24 16:46 | MHIPNPDOC ---
[facility] Progress Note Progress Note DATE OF SERVICE: 10/24/18 HISTORY: The patient a 18-year-old woman with a history of bipolar disorder presents to the [facility] ER after endorsing suicidal thoughts of wanting to shoot herself with a gun. She had been endorsing suicidal thoughts for the last week and has subsequently become fairly impaired and unable to attend work. This has gotten worse despite any interest decision by her outpatient provider who recently changed her from Lexapro to Latuda. Interval hx: patient reports continued depression, was interested in leaving, spoke to mother, who relayed severe impairment with increasing suicidal thoughts resistant to all behavioral activation.Mom reports patient has been compliant with medications. VITAL SIGNS: See below. NEW TEST RESULTS: none CURRENT MEDICATIONS: See below. MENTAL STATUS EXAMINATION: General: Fair hygiene Speech: Sparse Thought processes: Circumstantial MSK: Smooth and coordinated gait, no signs of tremors or involuntary orofacial movements Thought content: Guarded Abstract reasoning, and computation: Intact Description of associations: Intact Description of abnormal or psychotic thoughts: Denies any suicidal or homicidal ideation. Denies any auditory or visual hallucinations. Does not appear to be responding to internal stimuli. Judgment: Impaired Insight: Impaired Orientation: Alert and orientated 3 Cognition: Grossly normal Recent and remote memory: Intact Attention span and concentration: Intact Fund of knowledge: Adequate Mood: "okay" Affect: Flat with limited reactivity DIAGNOSES: Bipolar 1. Most recent episode, depressed: worsening. Tobacco use disorder, severe. ASSESSMENT:The patient a 18-year-old woman whose stepfather is a psychiatric nurse, is brought in by her parents due to suicidal thoughts with a plan to shoot herself. She does have theoretical access to a gun and has previously been admitted. Her treatment has been complicated by previous episodes of jamison and paranoia that are unclear in origin. She continues to want to leave, but she demonstrates fairly bizarre ideation and inconsistent stories that are concerning. MANAGEMENT PLAN: d/c abilify and latuda as not effective, mother reports eps, start lithium as tried multiple different meds, discussed risks, benefits and potential side effects, 300mg QHS tonight with though level tomorrow. TIME SPENT: 15 minutes. Vital Signs Vital Signs Date Time Temp Pulse Resp B/P (MAP) Pulse Ox O2 Delivery O2 Flow Rate FiO2 10/24/18 06:44 97.5 63 12 105/50 (68) 10/22/18 13:42 97 10/22/18 06:56 Room Air Laboratory Data 24H Labs Laboratory Tests 2 10/24/18 06:22: Estimated Mean Plasma Glucose 114H, Hemoglobin A1c 5.6, Triglycerides Level 143, LDL Cholesterol 157H, Total Cholesterol 227H, Non-HDL Cholesterol (LDL + VLDL) 186, Total HDL Cholesterol 41, Cholesterol/HDL Ratio 5.536H Current Medications Current Medications Acetaminophen (Tylenol Tab) 650 mg Q6HP PRN PO HEADACHE or DISCOMFORT; Start 10/22/18 at 13:00 Al Hydrox/Mg Hydrox/Simethicone (Mylanta) 30 ml Q4HP PRN PO HEARTBURN/INDIGESTION; Start 10/22/18 at 13:00 Aripiprazole (AbiLIFY) 5 mg QHS PO Last administered on 10/23/18at 20:29; Start 10/23/18 at 21:00; Stop 10/24/18 at 11:40; Status DC Home Med (Med Rec Complete!) ASDIRECTED XX ; Start 10/22/18 at 09:15; Stop 10/22/18 at 09:15; Status DC Hoover Carbonate (Hoover Carbonate) 300 mg BID PO ; Start 10/24/18 at 09:00; Stop 10/24/18 at 11:56; Status DC Hoover Carbonate (Hoover Carbonate) 300 mg QHS PO ; Start 10/24/18 at 21:00 Lurasidone HCl (Latuda) 20 mg QHS PO Last administered on 10/23/18at 20:29; St art 10/23/18 at 21:00; Stop 10/24/18 at 11:40; Status DC Magnesium Hydroxide (Milk Of Magnesia) 30 ml DAILYPRN PRN PO CONSTIPATION; Start 10/22/18 at 13:00 Trazodone HCl (Desyrel) 50 mg QHSP PRN PO INSOMNIA; Start 10/22/18 at 13:00 Allergies Coded Allergies: bee venom protein (honey bee) (Verified Allergy, Unknown, 10/21/18) NASH WEBB DO Oct 24, 2018 16:46
[2018-10-24 18:00] VITALS: BP 108/57
[2018-10-24] MEDS: LITHIUM CARBONATE 300 MG CAP PO SCH (20:41)
[2018-10-25 06:50] VITALS: BP 95/52
--- NOTE | 2018-10-25 10:57 | MHIPNPDOC ---
[facility] Progress Note Progress Note DATE OF SERVICE: 10/25/18 HISTORY: Per Dr. Gupta admit note: Patient is a 18-year-old CF, past medical history significant for bipolar disorder, depression, anxiety, presenting to the emergency room on account of suicidal thoughts for 2 weeks. Patient had also had a panic attack and informed her parents that she needed to come to the hospital. VITAL SIGNS: See below. NEW TEST RESULTS: See below. CURRENT MEDICATIONS: See below. MENTAL STATUS EXAMINATION: General Appearance: well groomed, appears stated age, personal clothes, overweight Build: overweight Demeanor: pleasant, cooperative, talkative Eye Contact: good Activity: calm, average Behavior: pleasant, cooperative, calm, relaxed Speech: clear, spontaneous, normal volume, reg/rate,rhythm,volume Mood: euthymic Mood "better" Affect: full, appropriate, congruent Thought Process: linear, more insightful Thought Content (Delusions): none reported today Thought Content (Other): none reported Thought Content (Aggressive): none reported Perception (Hallucinations): none reported Perception (Other): none reported Cognition (Impairment of): none reported Cognition(Intelligence Est.): average Oriented: Awake, Alert, Oriented times three Insight: improved Judgment: improved Psychosis: Denies DIAGNOSES: 1. Mood d/o unspecified; r/o Bipolar 2 d/o - depression 2. SOPHIA 3. Panic disorder ASSESSMENT:Pt seen and states that her mood is better and although just start lithium, is tolerating it well, and is waiting to feel beneficial effects. States she's being social on the milieu which is beneficial. States she slept well last night. She is attending groups and finding them helpful. Hopeful to go home soon to attend a wedding this weekend. [facility] regarding need for contraception during intercourse as lithium assoc with heart defect, Ebstein's Anomaly. She denies SI/HI, hallucinations, delusions. Pt feels safe here. MANAGEMENT PLAN: continue plan. thyroid profile for [facility]. [facility] regarding need for contraception during intercourse as lithium assoc with heart defect, Ebstein's Anomaly. medications [place] Carbonate 300 mg QHS Trazodone 50 mg QHSP PRN PO INSOMNIA TIME SPENT: 30 minutes. Vital Signs Vital Signs Date Time Temp Pulse Resp B/P (MAP) Pulse Ox O2 Delivery O2 Flow Rate FiO2 10/25/18 06:50 97.8 70 12 95/52 (66) 10/22/18 13:42 97 10/22/18 06:56 Room Air Current Medications Current Medications Acetaminophen (Tylenol Tab) 650 mg Q6HP PRN PO HEADACHE or DISCOMFORT; Start 10/22/18 at 13:00 Al Hydrox/Mg Hydrox/Simethicone (Mylanta) 30 ml Q4HP PRN PO HEARTBUR N/INDIGESTION; Start 10/22/18 at 13:00 Aripiprazole (AbiLIFY) 5 mg QHS PO Last administered on 10/23/18at 20:29; Start 10/23/18 at 21:00; Stop 10/24/18 at 11:40; Status DC Home Med (Med Rec Complete!) ASDIRECTED XX ; Start 10/22/18 at 09:15; Stop 10/22/18 at 09:15; Status DC [place] Carbonate ([place] Carbonate) 300 mg BID PO ; Start 10/24/18 at 09:00; Stop 10/24/18 at 11:56; Status DC [place] Carbonate ([place] Carbonate) 300 mg QHS PO Last administered on 10/24/18at 20:41; Start 10/24/18 at 21:00 Lurasidone HCl (Latuda) 20 mg QHS PO Last administered on 10/23/18at 20:29; Start 10/23/18 at 21:00; Stop 10/24/18 at 11:40; Status DC Magnesium Hydroxide (Milk Of Magnesia) 30 ml DAILYPRN PRN PO CONSTIPATION; Start 10/22/18 at 13:00 Trazodone HCl (Desyrel) 50 mg QHSP PRN PO INSOMNIA; Start 10/22/18 at 13:00 Allergies Coded Allergies: bee venom protein (honey bee) (Verified Allergy, Unknown, 10/21/18) ANNETTE KIRKLAND DO Oct 25, 2018 10:57 am
[2018-10-25 12:04] LABS: FREE THYROXINE INDEX 2.5 % (1.3-4.8); THYROID STIMULATING HORMONE 1.95 uIU/ML (0.463-3.98); THYROXINE (T4) 7.7 UG/DL (6.0-11.6)
[2018-10-25 18:00] VITALS: BP 126/60
[2018-10-25] MEDS: LITHIUM CARBONATE 300 MG CAP PO SCH (20:22)
[2018-10-26 06:58] VITALS: BP 107/57
--- NOTE | 2018-10-26 12:18 | MHIPNPDOC ---
[facility] Progress Note Progress Note DATE OF SERVICE: 10/26/18 HISTORY: The patient a 18-year-old woman with a history of bipolar disorder presents to the [facility] ER after endorsing suicidal thoughts of wanting to shoot herself with a gun. She had been endorsing suicidal thoughts for the last week and has subsequently become fairly impaired and unable to attend work. This has gotten worse despite any interest decision by her outpatient provider who recently changed her from Lexapro to Latuda. Interval hx: The patient was met with today, she reports that she is doing better on the lithium with improved depressed mood and more socialization with peers, she was noticed to be talking with other patients, she reports talking alot with other patients. Her mother reports that she has been doing well, as she is met with a second time after the initial visit. Discussion on the nature of lithium and going over the risks, benefits and potential side effects again with mother. Recommended family therapy when asked about adjunct treatments. Gave the name of a recommended family therapist in [place] to help with adjustment. The patient denies any side effects from lithium such as over sedation, tremors or confusion, reports no GI side effects as well. No behavioral problems, attending groups well. VITAL SIGNS: See below. NEW TEST RESULTS: none CURRENT MEDICATIONS: See below. MENTAL STATUS EXAMINATION: General: Fair hygiene Speech: fluid Thought processes: linear MSK: Smooth and coordinated gait, no signs of tremors or involuntary orofacial movements Thought content: more open Abstract reasoning, and computation: Intact Description of associations: Intact Description of abnormal or psychotic thoughts: Denies any suicidal or homicidal ideation. Denies any auditory or visual hallucinations. Does not appear to be responding to internal stimuli. Judgment: improving Insight: improving Orientation: Alert and orientated 3 Cognition: Grossly normal Recent and remote memory: Intact Attention span and concentration: Intact Fund of knowledge: Adequate Mood: "okay" Affect: Euthymic with increased reactivity. DIAGNOSES: Bipolar 1. Most recent episode, depressed: Improving Tobacco use disorder, severe. ASSESSMENT:The patient a 18-year-old woman whose stepfather is a psychiatric nurse, is brought in by her parents due to suicidal thoughts with a plan to shoot herself. She does have theoretical access to a gun and has previously been admitted. Her treatment has been complicated by previous episodes of jamison and paranoia that are unclear in origin. She continues to want to leave, but she d emonstrates fairly bizarre ideation and inconsistent stories that are concerning. MANAGEMENT PLAN: Continue 300mg [place] with level, currently at .22 which is currently subtherapeutic for prevention of jamison, disussed with family and patient about the risks of increasing at this time vs monitoring for levels at a later time (once it hits steady state) in a week's time before increase to the avoid the potential for toxicity. Patient and family amenable to this. TIME SPENT: 15 minutes. Vital Signs Vital Signs Date Time Temp Pulse Resp B/P (MAP) Pulse Ox O2 Delivery O2 Flow Rate FiO2 10/26/18 06:58 98.2 61 12 107/57 (74) 10/22/18 13:42 97 10/22/18 06:56 Room Air Current Medications Current Medications Acetaminophen (Tylenol Tab) 650 mg Q6HP PRN PO HEADACHE or DISCOMFORT; Start 10/22/18 at 13:00 Al Hydrox/Mg Hydrox/Simethicone (Mylanta) 30 ml Q4HP PRN PO HEARTBURN/INDIGESTION; Start 10/22/18 at 13:00 Aripiprazole (AbiLIFY) 5 mg QHS PO Last administered on 10/23/18at 20:29; Start 10/23/18 at 21:00; Stop 10/24/18 at 11:40; Status DC Home Med (Med Rec Complete!) ASDIRECTED XX ; Start 10/22/18 at 09:15; Stop 10/22/18 at 09:15; Status DC [place] Carbonate ([place] Carbonate) 300 mg BID PO ; Start 10/24/18 at 09:00; Stop 10/24/18 at 11:56; Status DC [place] Carbonate ([place] Carbonate) 300 mg QHS PO Last administered on 10/25/18at 20:22; Start 10/24/18 at 21:00 Lurasidone HCl (Latuda) 20 mg QHS PO Last administered on 10/23/18at 20:29; Start 10/23/18 at 21:00; Stop 10/24/18 at 11:40; Status DC Magnesium Hydroxide (Milk Of Magnesia) 30 ml DAILYPRN PRN PO CONSTIPATION; Start 10/22/18 at 13:00 Trazodone HCl (Desyrel) 50 mg QHSP PRN PO INSOMNIA; Start 10/22/18 at 13:00 Allergies Coded Allergies: bee venom protein (honey bee) (Verified Allergy, Unknown, 10/21/18) NASH WEBB DO Oct 26, 2018 12:18
[2018-10-26 18:09] VITALS: BP 122/70
[2018-10-26] MEDS: LITHIUM CARBONATE 300 MG CAP PO SCH (20:40)
[2018-10-26] MEDS ORDERED: LITHIUM CARBONATE 300 MG CAP PO SCH (21:00)
[2018-10-27 06:48] VITALS: BP 107/51
[2018-10-27 18:00] VITALS: BP 111/60
[2018-10-27] MEDS: LITHIUM CARBONATE 300 MG CAP PO SCH (20:43)
[2018-10-28 06:53] VITALS: BP 105/55
[2018-10-28 18:00] VITALS: BP 108/57
[2018-10-28] MEDS: LITHIUM CARBONATE 300 MG CAP PO SCH (20:38)
[2018-10-29 06:53] VITALS: BP 110/70
[2018-10-29] MEDS ORDERED: LITH300C PO (09:21)
--- NOTE | 2018-10-29 15:33 | MHDSPDOC ---
[facility] Discharge Summary Discharge Summary DATE OF ADMISSION: Oct 22, 2018 at 13:15 DATE OF DISCHARGE: Oct 29, 2018 at 11:30 Discharge Sudha Chamberlain Age 18 Female Date of : 2000 Date of Service: 10/29/2018 Diagnoses Bipolar type 1 current episode mixed. History of Present Illness The patient a 18-year-old woman with a history of bipolar disorder presents to the [facility] ER after endorsing suicidal thoughts of wanting to shoot herself with a gun. She had been endorsing suicidal thoughts for the last week and has subsequently become fairly impaired and unable to attend work. This has gotten worse despite any interest decision by her outpatient provider who recently changed her from Lexapro to Latuda. Consultants Involved Hospitalist/PCP screening Treatment and Progress On The Unit The patient was admitted to the inpatient unit with concerning ideation. The patient was noted to be somewhat bizarre upon initial eval, fairly flat and unreactive at times. She did want to leave immediately after feeling fairly anxious about coming off the unit. She subsequently became more comfortable with the unit and her Abilify and Latuda were discontinued as she reported that they were ineffective for controlling her mood. She was subsequently started on lithium 300 mg at night with a great improvement in her depression and ability to socialize. She was noted to become gregarious and talkative, walking around the unit, engaging in groups and her mother and father reported significant improvement when visiting her. She was subsequently triaged and decided ready for discharge. Her trough level for lithium after several days was 0.2. Discussed with the patient and her mother the risks of increasing versus the therapeutic levels of 0.8 and above needed for prevention of jamison. They elected to continue titration as an outpatient with their psychiatric nurse practitioner at [facility]. Discharge Assessment 18 year old woman with a history of bipolar disorder that improved well on lithium. She appears to respond fairly well with no noticeable side effects. Further titration will likely prevent manic episodes of which she has had in the past. The patient and mother have related that she would like to do this as an outpatient and she did not pose any concerning symptoms while on the unit or any concerning ideation at discharge. Mental Status Examination General: Well dressed with good hygiene Speech: Spontaneous and fluid Thought processes: Linear and logical MSK: Smooth and coordinated gait, no signs of tremors or involuntary orofacial movements Thought content: Future orientated Abstract reasoning, and computation: Intact Description of associations: Intact Description of abnormal or psychotic thoughts: Denies any suicidal or homicidal ideation. Denies any auditory or visual hallucinations. Does not appear to be responding to internal stimuli. Does not appear to be endorsing any bizarre or paranoid ideation. Judgment: fair Insight: fair Orientation: Alert and orientated 3 Cognition: Grossly normal Recent and remote memory: Intact Attention span and concentration: Intact Fund of knowledge: Adequate Mood: "okay" Affect: Euthymic with a full range Follow Up The social work team worked during the predischarge meeting in order to evaluate for further issues of lethality address them fully before discharge. They worked on safety planning with the patient's family members in order to ensure that the patient will have a safe and effective discharge. The patient will be discharged on 300 mg of lithium QHS with 7 tablets given with 4 refills as per safety with the history of suicidal thoughts. She will follow up with her outpatient provider. I spoke to her outpatient provider at [facility] and related the need to do another trough level in a week when she hits steady state and subsequently possibly increase the lithium to a therapeutic level. Time Spent The amount of time spent in the coordination of care for this patient was approximately 30 minutes. Monday Vital Signs/I&Os Vital Signs Date Time Temp Pulse Resp B/P (MAP) Pulse Ox O2 Delivery O2 Flow Rate FiO2 10/29/18 06:53 97.5 72 12 110/70 (83) Medications Scheduled [place] Carbonate ([place] Carbonate) 300 Mg Capsule, 300 MG PO QHS for mood for 7 Days, #7 Allergies Coded Allergies: bee venom protein (honey bee) (Verified Allergy, Unknown, 10/21/18) NASH WEBB DO Oct 29, 2018 15:33
== END 2018-10-29 11:30 | disposition home or self-care (01) | DRG 885 ==
LOC: M ED 20:07 → M PSY 10-22 13:15
PROVIDERS: ADMIT Psychiatry & Neurology Addiction Medicine; ATTEND Psychiatry & Neurology Addiction Medicine
DX: F31.60 Bipolar disorder, current episode mixed, unspecified (principal); R45.851 Suicidal ideations; Z91.038 Other insect allergy status; Z79.899 Other long term (current) drug therapy; F17.200 Nicotine dependence, unspecified, uncomplicated

== ENCOUNTER 2019-01-31 18:51 | Emergency (ER) | payer OTHER ==
[~2019-01-31] VITALS: Ht 165.1 cm; Wt 96.8 kg
[~2019-01-31 18:51] MED LIST changes: +ARIP1TAB6 PO; -DIPH25CA PO; +DIPH25CA32 PO; +LITH300C PO; +PROP10TA56 PO
[2019-01-31] MEDS ORDERED: LIDOCAINE 1% MDV 20ML VIAL As Ordered ONE (19:34)
[2019-01-31] MEDS ORDERED: LIDOCAINE 1% MDV 20ML VIAL SC ONE (19:45)
[2019-01-31] MEDS ORDERED: BACTRIM 160MG/800MG DS TAB PO ONE (20:15)
[2019-01-31 20:17] VITALS: BP 130/78
== END 2019-01-31 20:39 | disposition home or self-care (01) ==
LOC: M ED 18:51
DX: L05.01 Pilonidal cyst with abscess (principal); R50.9 Fever, unspecified; F17.210 Nicotine dependence, cigarettes, uncomplicated; F33.9 Major depressive disorder, recurrent, unspecified; F41.9 Anxiety disorder, unspecified; Z91.030 Bee allergy status; Z79.899 Other long term (current) drug therapy

== ENCOUNTER → 2019-12-02 | Outpatient (CLI) | payer OTHER ==
--- NOTE | 2020-01-09 09:11 | REP ---
OBSTETRIC SONOGRAPHY HISTORY: Supervision of for anatomy. FINDINGS: Scanning through the gravid uterus demonstrates a single living intrauterine gestation in a transverse head to the maternal right lie. Placenta is posterior grade 0 without evidence of previa or abruption. Amniotic fluid is subjectively normal. Closed cervical length is 3.2 cm viewed transabdominally. heart rate is recorded at 143 beats per minute. No anomalies seen. There is echogenic focus in the left ventricle likely chordae tendineae. spine is not well seen due to position. The following additional anatomic structures are identified and felt to be unremarkable: cranium and intracranial contents, left-sided stomach, kidneys and bladder, four chamber heart with left and right ventricular outflow tract views, three-vessel cord, abdominal wall cord insertion, upper and lower extremities, face and profile. BIOMETRY CHART: BPD 48 mm 20 weeks 5 days Head Circumference 179 mm 20 weeks 3 days Abdominal Circumference 151 mm 20 weeks 3 days Femur Length 33 mm 20 weeks 3 days Humeral Length 32 mm 20 weeks 5 days Cerebellar Diameter 20 mm 20 weeks 3 days Estimated Weight 350 g 42nd Percentile IMPRESSION: Viable single intrauterine gestation at 20 weeks 4 days by todays composite criteria. Echogenic focus in the left ventricle. spine less than optimally seen. MTDD
== END ==
LOC: M WHC 17:41
PROVIDERS: ATTEND Advanced Practice Midwife
DX: Z34.82 Encounter for supervision of other normal pregnancy, second trimester (principal); Z3A.20 20 weeks gestation of pregnancy

== ENCOUNTER → 2020-01-31 | Outpatient (CLI) | payer OTHER ==
--- NOTE | 2020-01-31 13:25 | REP ---
INDICATION: F/U ANATOMY SNOW 04/17/20 COMPARISON: 12/02/2019 TECHNIQUE: Transabdominal obstetrical ultrasound with color Doppler evaluation. FINDINGS: Examination demonstrates a single live intrauterine in cephalic presentation. motion is identified by technologist. Placenta is noted posterior and grade 1 without evidence for placenta previa or abruption. Amniotic fluid volume is normal. Cervix measures 3.6 cm in length and appears closed. No evidence for nuchal cord. Gestational age by LMP 29 weeks 0 days with SNOW 04/17/2020. Gestational age by current measurements 30 weeks 3 days with SNOW 04/07/2020. FHR equals 152 beats per minute. Estimated weight 1591 grams (88thpercentile). Anatomical assessment demonstrates normal structures including cranium, facial features, nose/lips, stomach, kidneys, bladder and spine IMPRESSION: Single live intrauterine in cephalic presentation. In conjunction with prior examination and Dom go assessment is complete and normal. <Electronically signed by Juan Carlos Montelongo > 01/31/20 [id number]
== END ==
LOC: M WHC 09:10
PROVIDERS: ATTEND Advanced Practice Midwife
DX: Z36.2 Encounter for other antenatal screening follow-up (principal); Z3A.29 29 weeks gestation of pregnancy

== ENCOUNTER → 2020-02-10 | Outpatient (REF) | payer OTHER ==
[2020-02-10 13:55] LABS: HEMATOCRIT 36.7 % (36.0-47.0); HEMOGLOBIN 11.7 g/dl (12.0-15.5); MEAN CORPUSCULAR HEMOGLOBIN 28.5 pg (27.0-33.0); MEAN CORPUSCULAR HGB CONC 31.9 g/dl (32.0-36.5); MEAN CORPUSCULAR VOLUME 89.3 fl (80.0-96.0); PLATELET COUNT, AUTOMATED 255 10^3/uL (150-450); RED BLOOD COUNT 4.11 10^6/uL (4.00-5.40); WHITE BLOOD COUNT 9.5 10^3/uL (4.0-10.0)
== END ==
LOC: M PLALAB 10:01
PROVIDERS: ATTEND Obstetrics & Gynecology
DX: Z3A.29 29 weeks gestation of pregnancy (principal)

== ENCOUNTER → 2020-03-24 | Outpatient (REF) | payer MEDICAID, OTHER ==
[~2020-03-24] MED LIST changes: +PRENTAB9 PO
== END ==
LOC: M SFHCWAGY 13:18
PROVIDERS: ATTEND Obstetrics & Gynecology
DX: Z3A.36 36 weeks gestation of pregnancy (principal)

== ENCOUNTER 2020-04-19 21:07 | Inpatient (IN) | payer OTHER, MEDICAID ==
[~2020-04-19] VITALS: Ht 165.1 cm; Wt 102.1 kg
[~2020-04-19 21:07] MED LIST changes: -PRENTAB9 PO
[2020-04-19 21:24] VITALS: BP 133/86
[2020-04-19] MEDS ORDERED: PRENTAB9 PO (22:08)
[2020-04-19] MEDS ORDERED: LACTATED RINGER'S 1000 ML IV STA (22:57)
[2020-04-19 23:08] LABS: HEMATOCRIT 35.1 % (36.0-47.0); HEMOGLOBIN 10.9 g/dl (12.0-15.5); MEAN CORPUSCULAR HGB CONC 31.1 g/dl (32.0-36.5); MEAN CORPUSCULAR VOLUME 83.6 fl (80.0-96.0); PLATELET COUNT, AUTOMATED 245 10^3/uL (150-450); WHITE BLOOD COUNT 9.3 10^3/uL (4.0-10.0)
--- NOTE | 2020-04-19 23:11 | HPEPDOC ---
Obstetrical History & Physical General Date of Admission Apr 19, 2020 at 22:03 History of Present Illness 19-year-old G1, P0 at 40+2 weeks gestation. Presents with frequent, painful uterine contractions over the past several hours. Denies any loss of fluid or vaginal bleeding. Reports regular movement. ROS: no SOMERS, cp, sob, fever/chills/nausea/vomiting. 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 Mother with thyroid cancer labs: Blood type O+, antibody screen negative, HepBsAg neg, HIV neg, r ubella immune, Hep C antibody negative, RPR nonreactive, CT/GC neg, urine culture negative, 1 hour glucose challenge test 110, GBS negative imaging: no anomalies or placental abnormalities Past Medical History Allergies Coded Allergies: bee venom protein (honey bee) (Verified Allergy, Unknown, 10/21/18) Medications Scheduled [place] Carbonate ([place] Carbonate) 300 Mg Capsule, 300 MG PO QHS for mood No.137/Iron/Folic Acd ( Vitamin Tablet) 1 Each Tablet, 1 TAB PO DAILY Physical Examination Physical Examination GENERAL: Alert and oriented times three. BREAST: . ABDOMEN: Gravid and non-tender to touch. FETUS: Is vertex (VTX) by sterile vaginal examination (SVE), fetus is vertex (VTX) by Caesar. HEART RATE: Regular rate and rhythm. LUNGS: Clear to auscultation (CTA). EXTREMITIES: No edema. No clonus. SVE: 3 cm, 80% effaced, -3 station, cephalic, intact. No bloody show EFM: Category 1 heart rate tracing [place]: Contractions every 3-7 minutes Vital Signs/I&O Vital Signs Date Time Temp Pulse Resp B/P (MAP) Pulse Ox O2 Delivery O2 Flow Rate FiO2 04/19/20 21:24 98.2 116 18 133/86 (102) Laboratory Data 24H LABS Laboratory Tests 2 04/19/20 22:06: Serology Scanned Report Hepatitis B Testing Assessment/Plan Assessment 19-year old at 40+2 weeks gestation. Dx: Early active labor at term. Reassuring maternal and status. Plan Admit and orient. Routine labs/orders Augment labor with Pitocin as needed Mode of delivery plan: ; as indicated. KENDALL PICKETT DO Apr 19, 2020 23:11
[2020-04-19] MEDS ORDERED: OXYTOCIN DRIP 30 UNITS in IV 1 EA IV SCH (23:15)
[2020-04-19] MEDS: LR 1,000 ML IV SCH (23:36)
[2020-04-19 23:40] VITALS: BP 123/78
[2020-04-20] VITALS (43 sets, daily range): BP systolic 89–141; BP diastolic 50–78
[2020-04-20] MEDS ORDERED: BUTORPHANOL 2 MG/ML INJ (J0595) IV ONE (02:45)
[2020-04-20] MEDS ORDERED: PROMETHAZINE INJ 25 MG/ML VIAL (J2550) IV ONE (02:45)
[2020-04-20] MEDS ORDERED: FENTANYL 2MCG/ML ROPIVACAINE 0.2% IN 0.9% NACL 100ML IVBAG As Ordered ONE (04:50)
[2020-04-20] MEDS ORDERED: REFRIGERATOR IV KEYS XX PRN (05:45)
[2020-04-20] MEDS ORDERED: EPIDURAL/PCA KEYS XX PRN (05:45)
[2020-04-20] MEDS ORDERED: diphenhydrAMINE 50MG/ML VIAL (J1200) IV PRN (05:45)
[2020-04-20] MEDS ORDERED: LACTATED RINGER'S 1000 ML IV PRN (05:45)
[2020-04-20] MEDS ORDERED: EPIDURAL COMMENT XX SCH (05:45)
[2020-04-20] MEDS ORDERED: ONDANSETRON 4MG/2ML VIAL IV PRN (05:45)
[2020-04-20] MEDS ORDERED: NALOXONE INJ 0.4MG/1ML VIAL (J2310 PER 1MG) IV PRN (05:45)
[2020-04-20] MEDS ORDERED: FENTANYL/ROPIVACAINE/NACL BAG 100 ML EPIDURAL SCH (05:45)
[2020-04-20] MEDS ORDERED: ePHEDrine SULFATE 25 MG/5 ML(5MG/ML) SYRINGE IV PRN (05:45)
--- NOTE | 2020-04-20 08:51 | IPNPDOC ---
Obstetrical Progress Note Date of Service Apr 20, 2020 Subjective Patient sleeping prior to being woken for SVE. Denies any pressure but reports feeling leaking. Objective Patient noted to be spontaneously ruptured for clear fluid. Forebag AROM for small amount of clear fluid. Small amount of bloody show noted on gloves. Vital Signs Date Time Temp Pulse Resp B/P (MAP) Pulse Ox O2 Delivery O2 Flow Rate FiO2 04/20/20 05:40 87 04/20/20 05:36 124/64 (84) 04/20/20 03:30 16 04/20/20 02:52 98.0 Assessment Heart Rate (FHR): 130 Variability: Minimal to moderate Decelerations: Early (post AROM of forebag), Variable, Prolonged (with AROM and being flat on back, alleviated with position change.) Heart Rate Tracing: Category II Tocometer Contractions: Yes Frequency: regular, other (2-3min) Duration: greater than 60 seconds Strength: palpated as strong, resting tone palp/soft Sterile Vaginal Examination Dilation: 8 cm Effacement (%): 100% Station: 0 Cervical Consistency: Soft Cervical Position: Anterior Postion/Presentation: Cephalic presentation Assessment and Plan Age: 19 : 1 Term: 0 Pre-term: 0 Abortions: 0 Livin Weeks & Days 40.3 Group B Streptococcus: Negative Anticipate: Vaginal Delivery ZAHRA FERNÁNDEZ CNM Apr 20, 2020 08:51
[2020-04-20] MEDS: LR 1,000 ML IV SCH (10:10)
[2020-04-20 12:04] LABS: CORD GAS ABE V -5.8; CORD GAS HCO3 V 23.1 MEQ/L; CORD GAS O2 SAT V 26.6 %; CORD GAS PCO2 V 58.5 mmHg; CORD GAS PH V 7.214 UNITS; CORD GAS PO2 V 15.8 mmHg; CORD GAS SBC V 18.1 MEQ/L; CORD GAS TCO2 V 24.9 MEQ/L
[2020-04-20 12:06] LABS: CORD GAS ABE A -2.8; CORD GAS O2 SAT A 82.5 %; CORD GAS PCO2 A 34.3 mmHg; CORD GAS PH A 7.404 UNITS; CORD GAS PO2 A 33.9 mmHg; CORD GAS SBC A 21.8 MEQ/L
--- NOTE | 2020-04-20 12:35 | DNPDOC ---
[facility] Delivery Note Delivery Note DATE OF DELIVERY: 04/20/20 @ 1147 PREDELIVERY DIAGNOSIS: 40-3/7 weeks' gestation and labor. POST DELIVERY DIAGNOSIS: Delivered. PROCEDURE: Spontaneous vaginal delivery. ELECTRIC APPLIANCE INSTALLER: Zahra Frost CNM, HAIDER and NAGA Sr ANESTHESIA: Epidural. ESTIMATED BLOOD LOSS: 450 mL. FINDINGS: 10 pound 2 ounce, 4590g Female infant, Score 6/9, loose nuchal cord times 1, 60 second shoulder dystocia alleviated with Nuzhat, suprapubic pressure, and internal rotation maneuvers; macrosomia. DELIVERY SUMMARY: Sudha is a 19-year-old 1 now para 1-0-0-1 who was admitted to labor and delivery for latent labor. She was started on Pitocin at 2340 and continued to progress well. She received an epidural for pain management. She spontaneously ruptured at 0822 with clear fluid. Sudha was an anterior lip and began pushing at 0947 with reduction of anterior lip to full dilation at 1007. She pushed effectively and head delivered TIMOTHY with restitution to LOT at 1146. A shoulder dystocia was noted and the Forensic Pathologist Dr. Motta, Dr. Kilgore and additional nursing staff was called into the room. NAGA Bell attempted to release shoulder, then GRAHAM Frost stepped in to alleviate shoulder dystocia. Total length of shoulder dystocia 60 seconds. Cord blood and cord gases obtained, see results below. Anterior right shoulder was released with Nuzhat, suprapubic pressure, and internal rotational maneuvers. Infant stimulated and placed on maternal abdomen, pink with good respiratory effort. Minimal movement of the right arm was noted with a good grasp and wrist movement. Dr. Motta evaluated and allowed to stay with mom post shoulder dystocia. The placenta delivered intact via Sharma mechanism at 1152. Fundal massage and IV Pitocin bolus started. A large gush of blood noted and a uterine sweep was done to remove clots from the lower uterine segment. Bleeding slowed and fundus firmed to umbilicus. IM Methergine 0.2mg in right leg by nursing staff per verbal order by GRAHAM due her increased risk of hemorrhage from a macrosomic . Vagina, perineum, and cervix examined and noted to have a perineal abrasion, which was hemostatic and not repaired. Sharps and sponges co unted and noted to be correct. Sudha is planning to breastfeed and they are naming her "Mian". Parents pleased with and being placed skin to skin with mother. Infant and mother left in stable condition. Item Value Date Time Cord Arterial Blood pH 7.404 UNITS 04/20/20 1156 Cord Arterial Blood PCO2 34.3 mmHg 04/20/20 1156 Cord Arterial Blood PO2 33.9 mmHg 04/20/20 1156 Cord Arterial Blood HCO3 21.0 MEQ/L 04/20/20 1156 Cord Arterial Blood Total CO2 22.0 MEQ/L 04/20/20 1156 Cord Arterial Blood Base Excess -2.8 04/20/20 1156 Cord Arterial Base Excess (Standard 21.8 MEQ/L 04/20/20 1156 Cord Arterial Bld Oxygen Saturation 82.5 % 04/20/20 1156 Item Value Date Time Cord Venous Blood pH 7.214 UNITS 04/20/20 1156 Cord Venous Blood PCO2 58.5 mmHg 04/20/20 1156 Cord Venous Blood PO2 15.8 mmHg 04/20/20 1156 Cord Venous Blood HCO3 23.1 MEQ/L 04/20/20 1156 Cord Venous Blood Total CO2 24.9 MEQ/L 04/20/20 1156 Cord Venous Base Excess (Actual) -5.8 04/20/20 1156 Cord Venous Base Excess (Standard) 18.1 MEQ/L 04/20/20 1156 Cord Venous Blood Oxygen Saturation 26.6 % 04/20/20 Caroline6 ZAHRA FROST CNM Apr 20, 2020 12:34
[2020-04-20] MEDS ORDERED: ANUSOL HC CREAM 30GM TOP PRN (12:45)
[2020-04-20] MEDS ORDERED: ACETAMINOPHEN TAB 650MG DOSE (2X325MG) PO PRN (12:45)
[2020-04-20] MEDS ORDERED: RHOGAM 300 MCG (1500 IU) INJ (J2790) IM SCH (12:45)
[2020-04-20] MEDS ORDERED: MEASLES,MUMPS,RUBELLA VACCINE INJ (MMR-II) (90707) SC SCH (12:45)
[2020-04-20] MEDS ORDERED: BENZOCAINE 20% HEMORRHOIDAL OINTMENT 28GM TUBE TOP PRN (12:45)
[2020-04-20] MEDS ORDERED: DOCUSATE SODIUM 100MG CAPSULE PO PRN (12:45)
[2020-04-20] MEDS ORDERED: IBUPROFEN 600MG TAB PO PRN (12:45)
[2020-04-20] MEDS ORDERED: METHYLERGONOVINE MALEATE 0.2 MG TAB PO PRN (13:00)
[2020-04-20] MEDS ORDERED: OXYTOCIN DRIP 30 UNITS in IV 1 EA IV SCH (13:00)
[2020-04-20] MEDS ORDERED: METHYLERGONOVINE MALEATE 0.2 MG/ML VIAL (J2210) IM ONE (13:00)
[2020-04-20] MEDS: IBUPROFEN 800 MG TAB PO PRN (14:38)
[2020-04-21 06:00] VITALS: BP 110/54
[2020-04-21] MEDS: PRENATAL VITAMINS CHEWABLE TABLET PO SCH ×2 (07:50→08:59)
[2020-04-21] MEDS: ACETAMINOPHEN 500 MG TAB PO PRN (08:12)
--- NOTE | 2020-04-21 08:30 | IPNPDOC ---
Progress Note Date of Service: Apr 21, 2020 Day#: 1 Progress Note SUBJECT: Sudha is a 19-year-old 1 now Para 1-0-0-1 status post uncom plicated spontaneous vaginal delivery at 40-3/7 weeks', with intact perineum, doing well day # 1. She has been ambulating, voiding spontaneously without issue and tolerating regular diet. Decided to stop , now formula feeding. Reports lochia is like a normal period. Pain is well controlled with Tylenol and Motrin. OBJECTIVE: VITAL SIGNS: Within normal limits, afebrile. Alert and oriented times three. Respirations regular, no accessory muscle use. Abdomen: Fundus firm at U-2. Soft, NTTP. Extremities: No edema, no calf tenderness. DTRs +2, negative clonus. Minimal lochia. ASSESSMENT: Day 1 PLAN: 1. Discharge to home tomorrow. 2. Tylenol and Motrin for pain. 3. Encourage ambulation. 4. May shower. 5. Normal nursing care. VS, I&O, 24H, Luz Vital Signs/I&O Vital Signs Date Time Temp Pulse Resp B/P (MAP) Pulse Ox O2 Delivery O2 Flow Rate FiO2 04/21/20 06:00 97.8 102 18 110/54 (72) 04/20/20 17:49 97 Room Air I&O- Last 24 Hours up to 6 AM 04/21/20 06:00 Intake Total 3011.3 ml Output Total 1550 ml Balance 1461.3 ml Laboratory Data 24H LABS Laboratory Tests 2 04/20/20 11:56: Cord Arterial Blood pH 7.404, Cord Arterial Blood PCO2 34.3, Cord Arterial Blood PO2 33.9, Cord Arterial Blood HCO3 21.0, Cord Arterial Blood Total CO2 22.0, Cord Arterial Blood Base Excess -2.8, Cord Arterial Base Excess (Standard 21.8, Cord Arterial Bld Oxygen Saturation 82.5, Cord Venous Blood pH 7.214, Cord Venous Blood PCO2 58.5, Cord Venous Blood PO2 15.8, Cord Venous Blood HCO3 23.1, Cord Venous Blood Total CO2 24.9, Cord Venous Base Excess (Actual) -5.8, Cord Venous Base Excess (Standard) 18.1, Cord Venous Blood Oxygen Saturation 26.6 ZAHRA FERNÁNDEZ CNM Apr 21, 2020 08:30
[2020-04-21] MEDS: IBUPROFEN 800 MG TAB PO PRN (15:29)
[2020-04-21 18:00] VITALS: BP 128/72
[2020-04-22] MEDS: ACETAMINOPHEN 500 MG TAB PO PRN ×2 (00:10→09:00)
[2020-04-22 06:16] VITALS: BP 117/72
--- NOTE | 2020-04-22 06:55 | IPNPDOC ---
Progress Note Date of Service: Apr 22, 2020 Day#: 2 Progress Note SUBJECT: Status post . She has been ambulating, voiding spontaneously without issue and tolerating regular diet. Lochia decreasing/minimal. Pain is well-controlled. Denies headache, visual changes, right upper quadrant pain, shortness breath or chest pain. OBJECTIVE: VITAL SIGNS: Within normal limits, afebrile. Alert and oriented times three. Abdomen: Fundus firm at U-2. Soft, NTTP. ASSESSMENT: Status post uncomplicated spontaneous vaginal delivery. Vitals within normal limits, afebrile, hemodynamically stable with no evidence of infection. PLAN: Discharge to home today. Tylenol and Motrin for pain. Routine instructions/precautions reviewed. Routine PP visit in 6 weeks in clinic. VS, I&O, 24H, Fishbone Vital Signs/I&O Vital Signs Date Time Temp Pulse Resp B/P (MAP) Pulse Ox O2 Delivery O2 Flow Rate FiO2 04/22/20 06:16 97.5 83 18 117/72 (87) 98 Room Air KENDALL PICKETT DO Apr 22, 2020 06:55
[2020-04-22] MEDS: PRENATAL VITAMINS CHEWABLE TABLET PO SCH (08:59)
== END 2020-04-22 11:30 | disposition home or self-care (01) | DRG 807 ==
LOC: M LDO 21:07 → M LDI 22:03 → M OBS 04-20 14:15
PROVIDERS: ADMIT Obstetrics & Gynecology; ATTEND Obstetrics & Gynecology
PROC: 10E0XZZ Delivery of Products of Conception, External Approach (ICD-10-PCS; principal; 2020-04-20)
DX: O48.0 Post-term pregnancy (principal); Z37.0 Single live birth; Z3A.40 40 weeks gestation of pregnancy; Z91.030 Bee allergy status; O69.81X0 Labor and delivery complicated by cord around neck, without compression, not applicable or unspecified; O66.0 Obstructed labor due to shoulder dystocia; O36.63X0 Maternal care for excessive fetal growth, third trimester, not applicable or unspecified

== ENCOUNTER → 2021-09-08 | Outpatient (REF) | payer MEDICAID ==
[~2021-09-08] MED LIST changes: +PRENTAB9 PO
== END ==
LOC: M PLALAB 14:45
PROVIDERS: ATTEND Advanced Practice Midwife
DX: Z12.4 Encounter for screening for malignant neoplasm of cervix (principal)

== ENCOUNTER → 2022-01-20 | Outpatient (REF) | LOC: M LABSMTC 09:32 | PROVIDERS: ATTEND Family Medicine | DX: Z11.52 Encounter for screening for COVID-19 (principal) ==

== ENCOUNTER → 2022-05-03 | Outpatient (REF) ==
[~2022-05-03] MED LIST changes: +DIPH-435 PO; -DIPH25CA32 PO
[2022-05-03 10:04] LABS: RSV AMPLIFICATION NEGATIVE (NEGATIVE)
== END ==
LOC: M EMP 09:01
PROVIDERS: ATTEND Family Medicine
DX: Z20.822 Contact with and (suspected) exposure to COVID-19 (principal)

== ENCOUNTER → 2022-05-06 | Outpatient (REF) | LOC: M EMP 10:13 | PROVIDERS: ATTEND Family Medicine | DX: Z11.52 Encounter for screening for COVID-19 (principal) ==

== ENCOUNTER 2022-08-03 22:28 | Emergency (ER) | payer OTHER ==
[2022-08-03 22:52] VITALS: BP 136/79
[2022-08-03 23:50] LABS: HEMATOCRIT 39.6 % (36.0-47.0); HEMOGLOBIN 13.5 g/dl (12.0-15.5); MEAN CORPUSCULAR HEMOGLOBIN 29.5 pg (27.0-33.0); MEAN CORPUSCULAR HGB CONC 34.1 g/dl (32.0-36.5); MEAN CORPUSCULAR VOLUME 86.7 fl (80.0-96.0); PLATELET COUNT, AUTOMATED 265 10^3/uL (150-450); RED BLOOD COUNT 4.57 10^6/uL (4.00-5.40)
[2022-08-03 23:58] LABS: AMPHETAMINES LEVEL URINE NEGATIVE (NEGATIVE); BARBITURATES URINE NEGATIVE (NEGATIVE); BENZODIAZEPINES URINE NEGATIVE (NEGATIVE); CANNABINOIDS URINE NEGATIVE (NEGATIVE); COCAINE METABOLITE URINE NEGATIVE (NEGATIVE); METHADONE URINE NEGATIVE (NEGATIVE); OPIATES URINE NEGATIVE (NEGATIVE); PHENCYCLIDINE URINE NEGATIVE (NEGATIVE)
[2022-08-04 00:06] LABS: ETHYL ALCOHOL (ETHANOL) 0.006 % (0.000-0.010)
[2022-08-04 00:08] LABS: ACETAMINOPHEN LEVEL < 2.0 UG/ML (10.0-20.0); ALBUMIN 3.4 G/DL (3.2-5.2); ALKALINE PHOSPHATASE 57 U/L (46-116); ALT/SGPT 11 U/L (7.0-40); AST/SGOT 16 U/L (<34); BILIRUBIN,DIRECT < 0.1 MG/DL (<0.4); BILIRUBIN,TOTAL 0.3 MG/DL (0.3-1.2); BLOOD UREA NITROGEN 11 MG/DL (9-23); CALCIUM LEVEL 8.4 MG/DL (8.5-10.1); CARBON DIOXIDE LEVEL 24 MMOL/L (20-31); CHLORIDE LEVEL 109 MMOL/L (98-107); CREATININE FOR GFR 0.73 MG/DL (0.55-1.30); GLOMERULAR FILTRATION RATE > 60.0 (>60); GLUCOSE, FASTING 88 MG/DL (60-100); HCG, SERUM QUALITATIVE NEGATIVE (NEGATIVE); POTASSIUM SERUM 3.5 MMOL/L (3.5-5.1); SALICYLATE LEVEL < 3.0 MG/DL (<30); SODIUM LEVEL 140 MMOL/L (136-145); TOTAL PROTEIN 6.9 G/DL (5.7-8.2)
[2022-08-04 00:11] LABS: THYROID STIMULATING HORMONE 1.953 uIU/ML (0.55-4.78)
== END 2022-08-04 01:34 | disposition home or self-care (01) ==
LOC: M ED 22:28
DX: F43.0 Acute stress reaction (principal); R45.851 Suicidal ideations; F10.10 Alcohol abuse, uncomplicated; F17.200 Nicotine dependence, unspecified, uncomplicated; Z91.030 Bee allergy status; Z79.810 Long term (current) use of selective estrogen receptor modulators (SERMs)

== ENCOUNTER → 2023-09-20 | Outpatient (REF) | payer BC | LOC: M PLALAB 15:35 | PROVIDERS: ATTEND Advanced Practice Midwife | DX: Z01.419 Encounter for gynecological examination (general) (routine) without abnormal findings (principal); Z12.4 Encounter for screening for malignant neoplasm of cervix ==